=== PATIENT | female | born 1930 | race Caucasian/White ===

== ENCOUNTER → 2017-01-15 | Outpatient (CLI) | payer OTHER, MEDICARE ==
[~2017-01-15] MED LIST: ACET1TAB84 PO; ADVIN25/60 INH; ASCA500; ASCA500 PO; ASPI81TA28 PO; BIOT1TAB5 PO; CALC600T37 PO; CALCTAB5; CHOL1TAB46 PO; CRDCD240; DILT-115 PO; FLVHFA220; LANS30CA12; LOSA1TAB PO; LVQ750 PO; MULT-506; MULTTAB58 PO; POLY1SOL6 OP; PRD/1 PO; PRED10TA; PRED10TA PO; PRVC10 PO; SALM50AE2; SERT50TA; SNG10; SPRIN/30 INH; TIOTCAP; VNTHFA/IN INH; ZNT/150 PO; [UNRECOGNIZED DRUG - OTHER] TOP
[2017-01-15 12:28] LABS: MANUAL MICROSCOPIC REQUIRED? YES; URINE APPEARANCE CLEAR (CLEAR); URINE BILIRUBIN NEG (NEG); URINE COLOR COLORLESS; URINE NITRITE NEG (NEG); URINE SPECIFIC GRAVITY <= 1.005 (1.000-1.030); UROBILINOGEN NEG (NEG)
[2017-01-15 12:33] LABS: BASO % 0.4 %; BASO ABS # 0.03 K/uL (0-0.2); EOS % 2.1 %; HEMATOCRIT 37.7 % (37-47); IG% 0.5 %; LYMPH ABS # 1.61 K/uL (1.2-3.4); MEAN CELL VOLUME 101.1 fL (80-100); MEAN CORPUSCULAR HGB CONC 33.7 g/dl (32-36); MEAN PLATELET VOLUME 9.9 fL (7.4-10.4); MONO % 7.1 %; NEUT % 70.9 %; PLATELET COUNT 306 K/uL (130-400); RED BLOOD COUNT 3.73 M/uL (4.2-5.4); WHITE BLOOD COUNT 8.48 K/uL (4.8-10.8)
[2017-01-15 12:34] LABS: REVIEW REQ? NO
[2017-01-15 12:54] LABS: COMPLETE YES
[2017-01-15 13:05] LABS: CALCIUM 9.2 mg/dl (8.5-10.1); URINE WBC >30 /hpf (0-5)
[2017-01-15 13:06] LABS: URINE BACTERIA 2+ (NEG); URINE RBC 0-4 /hpf (0-4)
[2017-01-15 13:07] LABS: ESTIMATED AVERAGE GLUCOSE 111 mg/dl; HA1C FLAG Normal (Normal)
[2017-01-15 13:12] LABS: ALT/SGPT 14 U/L (12-78); BLOOD UREA NITROGEN 22 mg/dl (7-18); BUN/CREATININE RATIO 22.4 (10-20); CARBON DIOXIDE 25 mmol/L (21-32); CHLORIDE 107 mmol/L (98-107); GLUCOSE 108 mg/dl (70-99); POTASSIUM 4.1 mmol/L (3.5-5.1); SODIUM 141 mmol/L (136-145)
[2017-01-15 13:19] LABS: ALB/GLOB RATIO 1.1 (0.9-2); ALKALINE PHOSPHATASE 64 U/L (45-117); AST/SGOT 13 U/L (15-37)
[2017-01-15 14:00] LABS: ZZUR CULT IF INDIC CLEAN CATCH YES
== END | disposition home or self-care (01) ==
LOC: C.LABBFT 10:37
PROVIDERS: ATTEND Internal Medicine
DX: N18.3 Chronic kidney disease, stage 3 (moderate) (principal); E55.9 Vitamin D deficiency, unspecified; R73.01 Impaired fasting glucose

== ENCOUNTER → 2017-01-16 | Outpatient (CLI) | payer OTHER, MEDICARE | END | disposition home or self-care (01) | LOC: C.LAB1850 14:14 | PROVIDERS: ATTEND Internal Medicine Rheumatology | DX: M35.3 Polymyalgia rheumatica (principal) ==

== ENCOUNTER 2017-03-01 16:35 | Inpatient (IN) | payer OTHER, MEDICARE ==
[~2017-03-01] VITALS: Ht 152.4 cm; Wt 87.3 kg
[~2017-03-01 16:35] MED LIST changes: -ACET1TAB84 PO; -ADVIN25/60 INH; -ASCA500 PO; -ASPI81TA28 PO; -BIOT1TAB5 PO; -CALC600T37 PO; -CHOL1TAB46 PO; -DILT-115 PO; -LOSA1TAB PO; -LVQ750 PO; -MULTTAB58 PO; -POLY1SOL6 OP; -PRD/1 PO; -PRED10TA PO; -PRVC10 PO; -SPRIN/30 INH; -VNTHFA/IN INH; -ZNT/150 PO; -[UNRECOGNIZED DRUG - OTHER] TOP
[2017-03-01] MEDS ORDERED: ALBUT/IPRATROP 3MG/0.5MG NEB 3 ML VIAL INH STA (16:48)
[2017-03-01] MEDS ORDERED: METHYLPREDNISOLONE 125 MG VIAL IV STA (16:48)
[2017-03-01] MEDS ORDERED: ACET1TAB84 PO (16:53)
[2017-03-01] MEDS ORDERED: SPRIN/30 INH (16:53)
[2017-03-01] MEDS ORDERED: [UNRECOGNIZED DRUG - OTHER] TOP (16:53)
[2017-03-01] MEDS ORDERED: ASPI81TA28 PO (16:53)
[2017-03-01] MEDS ORDERED: LOSA1TAB PO (16:53)
[2017-03-01] MEDS ORDERED: PRD/1 PO (16:53)
[2017-03-01] MEDS ORDERED: ADVIN25/60 INH (16:53)
[2017-03-01] MEDS ORDERED: ZNT/150 PO (16:53)
[2017-03-01] MEDS ORDERED: MULTTAB58 PO (16:53)
[2017-03-01] MEDS ORDERED: PRVC10 PO (16:53)
[2017-03-01] MEDS ORDERED: ASCA500 PO (16:53)
[2017-03-01] MEDS ORDERED: POLY1SOL6 OP (16:53)
[2017-03-01] MEDS ORDERED: CALC600T37 PO (16:53)
[2017-03-01] MEDS ORDERED: BIOT1TAB5 PO (16:53)
[2017-03-01] MEDS ORDERED: CHOL1TAB46 PO (16:53)
[2017-03-01] MEDS ORDERED: DILT-115 PO (16:53)
--- NOTE | 2017-03-01 17:25 | DIAGNOSTIC IMAGING REPORT ---
CHEST ONE VIEW PORTABLE HISTORY: EVALUATE RESPIRATORY DISTRESS.DYSPNEA COMPARISON: Chest 12/25/2015. FINDINGS: The heart is stable in size. No pleural effusions. No pneumothorax. Mild diffuse interstitial thickening has slightly progressed. There are hazy bibasilar densities. IMPRESSION: Mild diffuse interstitial thickening with hazy bibasilar densities which has slightly progressed. This could represent developing pulmonary edema or an atypical pneumonia. Electronically signed by: Tejinder Diez M.D. 03/01/2017 5:23 PM Dictated Date/Time: 03/01/2017 5:22 PM
[2017-03-01] MEDS ORDERED: LEVAQUIN 750MG / 150ML D5W IV STA (17:37)
[2017-03-01 18:00] LABS: BASO % 0.6 %; BASO ABS # 0.04 K/uL (0-0.2); COMPLETE YES; EOS % 0.6 %; HEMATOCRIT 37.8 % (37-47); IG% 0.1 %; LYMPH % 23.2 %; MEAN CELL VOLUME 99.7 fL (80-100); MEAN CORPUSCULAR HGB CONC 33.1 g/dl (32-36); MEAN PLATELET VOLUME 9.6 fL (7.4-10.4); NEUT % 65.5 %; PLATELET COUNT 272 K/uL (130-400); RED BLOOD COUNT 3.79 M/uL (4.2-5.4)
[2017-03-01 18:16] LABS: ALT/SGPT 17 U/L (12-78); AST/SGOT 18 U/L (15-37); BLOOD UREA NITROGEN 27 mg/dl (7-18); BUN/CREATININE RATIO 24.6 (10-20); CALCIUM 8.4 mg/dl (8.5-10.1); CARBON DIOXIDE 28 mmol/L (21-32); CHLORIDE 104 mmol/L (98-107); GLUCOSE 120 mg/dl (70-99); POTASSIUM 3.6 mmol/L (3.5-5.1); SODIUM 141 mmol/L (136-145)
[2017-03-01 18:21] LABS: ALB/GLOB RATIO 0.9 (0.9-2); ALKALINE PHOSPHATASE 68 U/L (45-117); CKMB/CK RATIO 2.4 (0-3.0)
--- NOTE | 2017-03-01 19:06 | EMERGENCY ROOM VISIT NOTE ---
History Report prepared by Blake: Tiffany Howard Under the Supervision of: Dr. Jean Menchaca M.D. First contact with patient: 16:37 Stated Complaint: SOB, COUGH, ILLNESS History of Present Illness The patient is a 86 year old female who presents to the Emergency Room with complaints of constant shortness of breath beginning 1 week ago. The patient states that she has been sick with a cough for about a week. She reports that she has a history of COPD but is not on oxygen at home. She complains of a cough and runny nose. Per nursing staff, the patient was 77 percent on room air and after putting her on 2L of oxygen her saturation came up to 100 percent. The patient denies headache, fevers, chills, diaphoresis, visual changes, neck pain, chest pain, nausea, vomiting, abdominal pain, new back pain, melena, hematochezia, urinary symptoms, numbness, weakness, leg swelling, leg pain, lymphadenopathy, rash, or other complaints. Source of History: patient Onset: 1 week ago Position: other (global) Quality: other (SOB) Timing: constant Review of Systems See HPI for pertinent positives and negatives. A total of ten systems were reviewed and were otherwise negative. Past Medical & Surgical Medical Problems: (1) COPD (chronic obstructive pulmonary disease) (2) Hypertension (3) Osteoporosis Family History No pertinent family history stated. Social History Marital Status: Housing Status: assisted living Occupation Status: retired Current/Historical Medications Scheduled Ascorbic Acid (Vitamin C), 500 MG PO DAILY Aspirin (Aspirin Ec), 81 MG PO DAILY Biotin (Biotin), 1,000 MCG PO DAILY Calcium (Calcium), 600 MG PO DAILY Cholecalciferol (Vitamin D3), 5,000 UNITS PO DAILY Diltiazem Hcl Ext Rel (Tiazac), 240 MG PO DAILY Fluticasone Prop/Salmeterol (Advair Diskus 250/50 60 Dose), 1 PUFF INH BID Losartan Potassium (Cozaar), 25 MG PO DAILY Multiple Vitamin (Multivitamin), 1 TAB PO DAILY Polyethylene Glycol-Propylene (Systane Ultra), 1 DROPS OP DIRECTED Pravastatin Sod (Pravastatin Sodium), 10 MG PO QPM Prednisone (Prednisone), 2 MG PO DAILY Tiotropium [place] (Spiriva Handihaler), 1 CAP INH DAILY Scheduled PRN Acetaminophen (Tylenol Arthritis Ext Rel), 650 MG PO QID PRN for Pain Eyelid Cleansers (Sterilid), 1 INCH TOP DAILY PRN for UNDECIDED Ranitidine Hcl (Zantac), 150 MG PO UD PRN for HEARTBURN Allergies Coded Allergies: No Known Allergies (Unverified Allergy, Mild, 05/10/06) Physical Exam Vital Signs Date Time Temp Pulse Resp B/P (MAP) Pulse Ox O2 Delivery O2 Flow Rate FiO2 03/01/17 18:47 89 20 143/76 96 Nasal Cannula 2.0 03/01/17 17:32 95 Nasal Cannula 2.0 03/01/17 17:32 95 Nasal Cannula 2.0 03/01/17 17:20 36.8 93 24 172/86 77 Room Air 03/01/17 17:10 90 03/01/17 17:03 77 Room Air Physical Exam GENERAL: Awake, alert, well-appearing, in no distress HENT: Normocephalic, atraumatic. Oropharynx unremarkable. EYES: Normal conjunctiva. Sclera non-icteric. NECK: Supple. No nuchal rigidity. FROM. No JVD. RESPIRATORY: Expiratory wheezing. Dyspneic appearing. CARDIAC: Regular rate, normal rhythm. Extremities warm and well perfused. Pulses equal. ABDOMEN: Soft, non-distended. No tenderness to palpation. No rebound or guarding. No masses. RECTAL: Deferred. MUSCULOSKELETAL: Chest examination reveals no tenderness. The back is symmetrical on inspection without obvious abnormality. There is no CVA tenderness to palpation. No joint edema. LOWER EXTREMITIES: Calves are equal size bilaterally and non-tender. No edema. No discoloration. NEURO: Normal sensorium. No sensory or motor deficits noted. SKIN: No rash or jaundice noted. Medical Decision & Procedures ER Provider Diagnostic Interpretation: X-ray: Per my interpretation, radiologist review. CHEST ONE VIEW PORTABLE FINDINGS: The heart is stable in size. No pleural effusions. No pneumothorax. Mild diffuse interstitial thickening has slightly progressed. There are hazy bibasilar densities. IMPRESSION: Mild diffuse interstitial thickening with hazy bibasilar densities which has slightly progressed. This could represent developing pulmonary edema or an atypical pneumonia. Electronically signed by: Tejinder Diez M.D. 03/01/2017 5:23 PM Dictated Date/Time: 03/01/2017 5:22 PM Laboratory Results 03/01/17 17:46 Red Blood Count 3.79, Mean Corpuscular Volume 99.7, Mean Corpuscular Hemoglobin 33.0, Mean Corpuscular Hemoglobin Concent 33.1, Mean Platelet Volume 9.6, Neutrophils (%) (Auto) 65.5, Lymphocytes (%) (Auto) 23.2, Monocytes (%) (Auto) 10.0, Eosinophils (%) (Auto) 0.6, Basophils (%) (Auto) 0.6, Neutrophils # (Auto ) 4.52, Lymphocytes # (Auto) 1.60, Monocytes # (Auto) 0.69, Eosinophils # (Auto ) 0.04, Basophils # (Auto) 0.04 03/01/17 17:46 Test 03/01/17 17:46 03/01/17 17:54 White Blood Count 6.90 K/uL (4.8-10.8) Red Blood Count 3.79 M/uL (4.2-5.4) Hemoglobin 12.5 g/dL (12.0-16.0) Hematocrit 37.8 % (37-47) Mean Corpuscular Volume 99.7 fL (80-100) Mean Corpuscular Hemoglobin 33.0 pg (25-34) Mean Corpuscular Hemoglobin Concent 33.1 g/dl (32-36) Platelet Count 272 K/uL (130-400) Mean Platelet Volume 9.6 fL (7.4-10.4) Neutrophils (%) (Auto) 65.5 % Lymphocytes (%) (Auto) 23.2 % Monocytes (%) (Auto) 10.0 % Eosinophils (%) (Auto) 0.6 % Basophils (%) (Auto) 0.6 % Neutrophils # (Auto) 4.52 K/uL (1.4-6.5) Lymphocytes # (Auto) 1.60 K/uL (1.2-3.4) Monocytes # (Auto) 0.69 K/uL (0.11-0.59) Eosinophils # (Auto) 0.04 K/uL (0-0.5) Basophils # (Auto) 0.04 K/uL (0-0.2) RDW Standard Deviation 49.0 fL (36.4-46.3) RDW Coefficient of Variation 13.5 % (11.5-14.5) Immature Granulocyte % (Auto) 0.1 % Immature Granulocyte # (Auto) 0.01 K/uL (0.00-0.02) Prothrombin Time 11.0 SECONDS (9.0-12.0) Prothromb Time International Ratio 1.0 (0.9-1.1) Activated Partial Thromboplast Time 26.7 SECONDS (21.0-31.0) Partial Thromboplastin Ratio 1.0 Anion Gap 9.0 mmol/L (3-11) Est Creatinine Clear Calc Drug Dose 37.0 ml/min Estimated GFR () 53.0 Estimated GFR (Non- 45.7 BUN/Creatinine Ratio 24.6 (10-20) Calcium Level 8.4 mg/dl (8.5-10.1) Total Bilirubin 0.4 mg/dl (0.2-1) Aspartate Amino Transf (AST/SGOT) 18 U/L (15-37) Alanine Aminotransferase (ALT/SGPT) 17 U/L (12-78) Alkaline Phosphatase 68 U/L (45-117) Total Creatine Kinase 197 U/L (26-192) Creatine Kinase MB 4.7 ng/ml (0.5-3.6) Creatine Kinase MB Ratio 2.4 (0-3.0) Troponin I < 0.015 ng/ml (0-0.045) Pro-B-Type Natriuretic Peptide 221 pg/ml (0-1800) Total Protein 7.3 gm/dl (6.4-8.2) Albumin 3.5 gm/dl (3.4-5.0) Globulin 3.8 gm/dl (2.5-4.0) Albumin/Globulin Ratio 0.9 (0.9-2) Bedside Lactic Acid Venous 1.15 mmol/L (0.90-1.70) Laboratory results reviewed by me Medications Administered Medications (Trade) Dose Ordered Sig/Brittney Route Start Time Stop Time Status Last Admin Dose Admin Albuterol/ Ipratropium (Duoneb) 3 ml NOW STAT INH 03/01/17 16:48 03/01/17 16:50 DC 03/01/17 18:03 3 ML Methylprednisolone Sodium Succinate (Solu-Medrol IV) 125 mg NOW STAT IV 03/01/17 16:48 03/01/17 16:50 DC 03/01/17 18:04 125 MG Levofloxacin (Levaquin / D5W) 750 mg NOW STAT IV 03/01/17 17:37 03/01/17 17:39 DC 03/01/17 18:04 750 MG ECG Indication: SOB/dyspnea Rate (beats per minute): 82 Rhythm: normal sinus Findings: Q waves (Inferior), no acute ischemic change ED Course 163: The patient was evaluated in room B4. A complete history and physical exam was performed. 1648: Solu-Medrol 125mg IV, Duoneb 3ml INH. 1737: Levofloxacin 720mg IV. 1743: I reevaluated the patient and she is doing well. 184: Discussed the patient's case with Dr. Pineda [facility]. The patient will be evaluated for further treatment and disposition. 185: Upon reexamination, the patient was doing well. I discussed the test results and treatment plan with the patient. The patient will be evaluated for further management. Medical Decision Triage Nursing notes reviewed. The patient's presentation and history were concerning for SOB. Medication Reconciliation: I attest that I have personally reviewed the patient' s current medication list Blood pressure screening: Patient was found to have an elevated blood pressure and was referred to their primary doctor for recheck and further treatment. Etiologies such as pneumonia, COPD, reactive airway disease, CHF, cardiac ischemia, pulmonary embolism, pneumothorax, musculoskeletal, infections, gastrointestinal, as well as others were entertained. The patient was hypoxic. She was responding well to oxygen. She was given solumedrol and a duoneb. On reassessment the patient was stable and doing well on supplemental oxygen. Her CBC was unremarkable. The patient had a negative BNP and troponin. Her MB was slightly positive as well as her total CK. The patient's coags and LFTs were unremarkable. The patient had an infiltrate on chest x-ray. She was given IV Levaquin. She will need further evaluation and management in the hospital. I did discuss the case with the hospitalist service. The patient was evaluated in the Emergency Room and admitted for further treatment. Consults Time Called: [id number] Consulting Physician: Dr. Barber - [facility] Returned Call: [phone] Discussed the patient's case with Dr. Barber of [facility]. The patient will be evaluated for further treatment and disposition. Impression Primary Impression: Pneumonia Additional Impressions: Hypoxia COPD (chronic obstructive pulmonary disease) Scribe Attestation The scribe's documentation has been prepared under my direction and personally reviewed by me in its entirety. I confirm that the note above accurately reflects all work, treatment, procedures, and medical decision making performed by me. Departure Information Dispostion Being Evaluated By Hospitalist Referrals Fausto Fajardo M.D. (PCP) Problem Qualifiers
[2017-03-01] MEDS ORDERED: RANITIDINE HCL 150 MG TAB PO PRN (19:15)
[2017-03-01] MEDS ORDERED: MAGNESIUM HYDROXIDE SUSP 30 ML UDC PO PRN (19:15)
[2017-03-01] MEDS ORDERED: ONDANSETRON INJ 2 MG/ML 2 ML VIAL IV PRN (19:15)
--- NOTE | 2017-03-01 19:17 | History and Physical ---
History & Physical Date & Time of Service: Mar 01, 2017 at 19:08 Chief Complaint: Sob, Cough, Illness Primary Care Physician: Fausto Fajardo M.D. History of Present Illness Source: patient Pt is a 86 yo female with hx of COPD, HTN, dyslipidemia, OA who presents to the ER with complaints of progressive shortness of breath x 2 days. Pt reports upper respiratory symptoms of runny nose, productive cough , and weakness x 1 week but stats past 2 days her shortness of breath worse with exertion. Pt has hx of COPD and is on advair and albuterol at home. Pt is not O2 dependant. Pt denies any fevers, chills, chest pain, palpitation, abd pain. Upon arrival to ER, pt noted to be hypoxic in the 70s and short of breath. Improved with nasal cannula at 2L O2. CXR determined possible developing basilar infiltrate as well. Past Medical/Surgical History Medical Problems: (1) COPD (chronic obstructive pulmonary disease) Status: Chronic (2) Hypertension Status: Chronic (3) Osteoporosis Status: Chronic Social History Smoking Status: Former Smoker Marital Status: Occupational Status: retired Multi-Drug Resistant Organisms History of MDRO: No Allergies Coded Allergies: No Known Allergies (Unverified Allergy, Mild, 05/10/06) Home Medications Scheduled Ascorbic Acid (Vitamin C), 500 MG PO DAILY Aspirin (Aspirin Ec), 81 MG PO DAILY Biotin (Biotin), 1,000 MCG PO DAILY Calcium (Calcium), 600 MG PO DAILY Cholecalciferol (Vitamin D3), 5,000 UNITS PO DAILY Diltiazem Hcl Ext Rel (Tiazac), 240 MG PO DAILY Fluticasone Prop/Salmeterol (Advair Diskus 250/50 60 Dose), 1 PUFF INH BID Losartan Potassium (Cozaar), 25 MG PO DAILY Multiple Vitamin (Multivitamin), 1 TAB PO DAILY Polyethylene Glycol-Propylene (Systane Ultra), 1 DROPS OP DIRECTED Pravastatin Sod (Pravastatin Sodium), 10 MG PO QPM Prednisone (Prednisone), 2 MG PO DAILY Tiotropium [place] (Spiriva Handihaler), 1 CAP INH DAILY Scheduled PRN Acetaminophen (Tylenol Arthritis Ext Rel), 650 MG PO QID PRN for Pain Eyelid Cleansers (Sterilid), 1 INCH TOP DAILY PRN for UNDECIDED Ranitidine Hcl (Zantac), 150 MG PO UD PRN for HEARTBURN Review of Systems Constitutional: No fever, No chills, No sweats, No weakness, No fatigue ENT: + nasal symptoms (runny nose), No hearing loss, No unusual epistaxis Respiratory: + cough, + sputum, + wheezing, + shortness of breath, + dyspnea on exertion, No dyspnea at rest Cardiovascular: No chest pain, No orthopnea, No PND, No edema, No claudication Abdomen: No pain, No nausea, No vomiting, No diarrhea, No constipation Musculoskeletal: + joint pain, No muscle pain Genitourinary - Female: No dysuria, No urinary frequency, No urinary urgency, No urinary incontinence Neurologic: No memory loss, No paralysis, No weakness Psychiatric: No depression symptoms, No anhedonism, No anxiety Physical Exam Vital Signs Date Time Temp Pulse Resp B/P (MAP) Pulse Ox O2 Delivery O2 Flow Rate FiO2 03/01/17 18:47 89 20 143/76 96 Nasal Cannula 2.0 03/01/17 17:32 95 Nasal Cannula 2.0 03/01/17 17:32 95 Nasal Cannula 2.0 03/01/17 17:20 36.8 93 24 172/86 77 Room Air 03/01/17 17:10 90 03/01/17 17:03 77 Room Air General Appearance: WD/WN, no apparent distress, + obese Eyes: normal inspection, PERRL, EOMI, sclerae normal Neck: supple, no adenopathy, thyroid normal, no JVD Respiratory/Chest: chest non-tender, no respiratory distress, + decreased breath sounds, + wheezing Cardiovascular: regular rate, rhythm, no edema, no gallop, no JVD Abdomen/GI: normal bowel sounds, non tender, soft, no organomegaly Extremities/Musculoskelatal: normal inspection, no calf tenderness, normal capillary refill, no pedal edema 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, no motor/sensory deficits, alert, oriented x 3 Diagnostics Laboratory Results Results Past 24 Hours Test 03/01/17 17:46 03/01/17 17:54 Range/Units White Blood Count 6.90 4.8-10.8 K/uL Red Blood Count 3.79 4.2-5.4 M/uL Hemoglobin 12.5 12.0-16.0 g/dL Hematocrit 37.8 37-47 % Mean Corpuscular Volume 99.7 80-100 fL Mean Corpuscular Hemoglobin 33.0 25-34 pg Mean Corpuscular Hemoglobin Concent 33.1 32-36 g/dl Platelet Count 272 130-400 K/uL Mean Platelet Volume 9.6 7.4-10.4 fL Neutrophils (%) (Auto) 65.5 % Lymphocytes (%) (Auto) 23.2 % Monocytes (%) (Auto) 10.0 % Eosinophils (%) (Auto) 0.6 % Basophils (%) (Auto) 0.6 % Neutrophils # (Auto) 4.52 1.4-6.5 K/uL Lymphocytes # (Auto) 1.60 1.2-3.4 K/uL Monocytes # (Auto) 0.69 0.11-0.59 K/uL Eosinophils # (Auto) 0.04 0-0.5 K/uL Basophils # (Auto) 0.04 0-0.2 K/uL RDW Standard Deviation 49.0 36.4-46.3 fL RDW Coefficient of Variation 13.5 11.5-14.5 % Immature Granulocyte % (Auto) 0.1 % Immature Granulocyte # (Auto) 0.01 0.00-0.02 K/uL Prothrombin Time 11.0 9.0-12.0 SECONDS Prothromb Time International Ratio 1.0 0.9-1.1 Activated Partial Thromboplast Time 26.7 21.0-31.0 SECONDS Partial Thromboplastin Ratio 1.0 Sodium Level 141 136-145 mmol/L Potassium Level 3.6 3.5-5.1 mmol/L Chloride Level 104 98-107 mmol/L Carbon Dioxide Level 28 21-32 mmol/L Anion Gap 9.0 3-11 mmol/L Blood Urea Nitrogen 27 7-18 mg/dl Creatinine 1.10 0.60-1.20 mg/dl Est Creatinine Clear Calc Drug Dose 37.0 ml/min Estimated GFR () 53.0 Estimated GFR (Non- 45.7 BUN/Creatinine Ratio 24.6 10-20 Random Glucose 120 70-99 mg/dl Calcium Level 8.4 8.5-10.1 mg/dl Total Bilirubin 0.4 0.2-1 mg/dl Aspartate Amino Transf (AST/SGOT) 18 15-37 U/L Alanine Aminotransferase (ALT/SGPT) 17 12-78 U/L Alkaline Phosphatase 68 45-117 U/L Total Creatine Kinase 197 26-192 U/L Creatine Kinase MB 4.7 0.5-3.6 ng/ml Creatine Kinase MB Ratio 2.4 0-3.0 Troponin I < 0.015 0-0.045 ng/ml Pro-B-Type Natriuretic Peptide 221 0-1800 pg/ml Total Protein 7.3 6.4-8.2 gm/dl Albumin 3.5 3.4-5.0 gm/dl Globulin 3.8 2.5-4.0 gm/dl Albumin/Globulin Ratio 0.9 0.9-2 Bedside Lactic Acid Venous 1.15 0.90-1.70 mmol/L Microbiology Results 03/01/17 Blood Culture, Received Pending 03/01/17 Blood Culture, Received Pending Impression Assessment and Plan Pt is a 86 yo female with progressive worsening sob x 2 days Shortness of breath likely secondary to COPD exacerbation/developing CAP. Will cont pt on advair and O2 per protocol. Will also utilize solumedrol 60 mg IV BID and duonebs q 4 hrs and q 2 PRN. Will start on levaquin 750 mg IV q daily as well. Obtain sputum cx if possible and give mucinex to thin out secretions HTN, stable, cont cardizem and losartan Dyslipidemia cont statin OA, DC oral prednisone since pt will be on solumedrol GERD stable, cont zantac DVT ppx with heparin Pt is DNR VTE Prophylaxis VTE Risk Assessment Done? Y/N: Yes Risk Level: Moderate
[2017-03-01 20:26] LABS: URINE APPEARANCE CLOUDY (CLEAR); URINE BILIRUBIN NEG (NEG); URINE COLOR YELLOW; URINE EPITHELIAL CELL AUTO >30 /lpf (0-5); URINE NITRITE POS (NEG); UROBILINOGEN NEG (NEG)
[2017-03-01 20:31] LABS: MANUAL MICROSCOPIC REQUIRED? NO; REVIEW REQ? NO
[2017-03-01 20:45] VITALS: BP 168/78; TEMP 36.7; O2SAT 96; Ht 152.4 cm; Wt 87.3 kg
[2017-03-01 20:52] VITALS: BP 168/78; PULSE 93; TEMP 36.7; O2SAT 92
[2017-03-01] MEDS: HEPARIN SOD 5000 UNIT/0.5 ML CARP SQ SCH (22:00)
[2017-03-01] MEDS: FLUTICASONE/SALMETEROL 250/50 (ADVAIR) 14 PUFF/1 INHALER INH SCH (22:00)
[2017-03-01] MEDS: PRAVASTATIN SOD 10 MG TAB PO SCH (22:01)
[2017-03-01] MEDS: GUAIFENESIN 600 MG TABCR PO SCH (22:01)
[2017-03-01 22:18] VITALS: PULSE 90; O2SAT 94
[2017-03-01] MEDS: ALBUT/IPRATROP 3MG/0.5MG NEB 3 ML VIAL INH SCH (22:18)
[2017-03-01] MEDS ORDERED: LEVOFLOXACIN CONSULT ACTIVE PRN (23:45)
[2017-03-02] VITALS (11 sets, daily range): BP systolic 153–172; BP diastolic 75–83; PULSE 88–107; TEMP 36.5–37.1; O2SAT 85–95
[2017-03-02] MEDS: HEPARIN SOD 5000 UNIT/0.5 ML CARP SQ SCH ×3 (05:45→20:46)
[2017-03-02] MEDS ORDERED: METHYLPREDNISOLONE IV 60 MG in SYRINGE 0 ML IV SCH (06:00)
[2017-03-02 06:28] LABS: BASO % 0.3 %; BASO ABS # 0.01 K/uL (0-0.2); COMPLETE YES; HEMATOCRIT 38.9 % (37-47); IG% 0.3 %; LYMPH % 20.3 %; LYMPH ABS # 0.76 K/uL (1.2-3.4); MEAN CELL VOLUME 97.7 fL (80-100); MEAN CORPUSCULAR HEMOGLOBIN 32.2 pg (25-34); MEAN CORPUSCULAR HGB CONC 32.9 g/dl (32-36); MEAN PLATELET VOLUME 9.5 fL (7.4-10.4); MONO % 1.9 %; NEUT % 77.2 %; PLATELET COUNT 283 K/uL (130-400); RED BLOOD COUNT 3.98 M/uL (4.2-5.4); WHITE BLOOD COUNT 3.74 K/uL (4.8-10.8)
[2017-03-02 07:06] LABS: BLOOD UREA NITROGEN 21 mg/dl (7-18); BUN/CREATININE RATIO 24.1 (10-20); CALCIUM 8.9 mg/dl (8.5-10.1); CARBON DIOXIDE 26 mmol/L (21-32); CHLORIDE 104 mmol/L (98-107); CREATININE 0.87 mg/dl (0.60-1.20); GLUCOSE 150 mg/dl (70-99); POTASSIUM 3.9 mmol/L (3.5-5.1); SODIUM 141 mmol/L (136-145)
[2017-03-02] MEDS: ALBUT/IPRATROP 3MG/0.5MG NEB 3 ML VIAL INH SCH ×4 (07:14→19:26)
[2017-03-02] MEDS: FLUTICASONE/SALMETEROL 250/50 (ADVAIR) 14 PUFF/1 INHALER INH SCH ×2 (08:39→20:43)
[2017-03-02] MEDS: TIOTROPIUM BROMIDE 5 PUFF/90 MCG INH INH SCH (08:40)
[2017-03-02] MEDS: LOSARTAN POTASSIUM 25 MG TAB PO SCH (08:41)
[2017-03-02] MEDS: ASPIRIN 81 MG ECTAB PO SCH (08:41)
[2017-03-02] MEDS: ASCORBIC ACID 500 MG TAB PO SCH (08:42)
[2017-03-02] MEDS: MULTIVITAMIN TAB PO SCH (08:42)
[2017-03-02] MEDS: GUAIFENESIN 600 MG TABCR PO SCH ×2 (08:42→20:43)
[2017-03-02] MEDS: DILTIAZEM HCL 120 MG EXT REL CAP PO SCH (08:43)
--- NOTE | 2017-03-02 10:33 | Medical Student: [facility] ---
Med Student History & Physical Date & Time of Service: Mar 02, 2017 at 08:32 Chief Complaint: COPD Primary Care Physician: Fausto Fajardo M.D. History of Present Illness Source: patient The patient is an 86 year old woman with a medical history significant for HTN, COPD, dental abscess (02/11) and recent URI (02/23) who presents to [facility] with complaints of shortness of breath. The patient reports that she has been doing well recently until around when she "got a bug" that she did not seek treatment for. She claims several people that she knows had the same symptoms and was told it was a viral infection and no treatment was provided so she "just rode it out." Associated symptoms with this "bug" was a cough and rhinorrhea with clear discharge. She was starting to feel better this past week when she developed dyspnea on exertion. The onset was gradual over several days. She denies fever, sweats, chest pain, palpatations, or other associated symptoms. Her symptoms escalated yesterday to the point that she decided to call for EMS to transfer her to the Emergency Department. In the ED, she was hypoxic on room air to 77% and hypertensive to 172/86. Her pulse oximetry returned to 100% on 2l of oxygen. She was given a duoneb and solumedrol at this time. She was also noted to have a slightly elevated CK-MB and total CK. CXR in the ED was concerning for bibasilar infiltrate/edema. It was decided to bring the patient into the hospital for further workup. This morning the patient is resting comfortably in bed, although she does appear somewhat dyspneic. Respiratory therapy had been by to see her 45 minutes prior to my arrival and removed her supplemental oxygen. She was again hypoxic to 85% and was placed back on 1L of oxygen nasal canula. Her pulse oximetry sherrie to 91% by the time I left. She reports no new symptoms and claims that she may be feeling a little better. She did state that she has not slept since 03/01 at 0700. She thinks this is due to some anxiety and inability to get comfortable in the hospital bed. Past Medical/Surgical History The patient has a PMH significant for HTN, COPD, seasonal allergies, dyslipidemia, osteoarthritis, and s/p excision of basal cell carcinoma on the chin. She reports having a D/C procedure, tonsils and appendix removed as a chid , and has 2 children who were born uneventfully via spontaneous vaginal delivery. Family History Father: coronary artery disease, HTN, heart disease Mother: HTN, cancer (Colon Ca), stroke Sibling(s): cancer (Renal Cancer in brother), thromboembolic disease, pertinent history of (Pulmonary Fibrosis, Pulmonary embolism) Social History The patient is and lives alone at [facility]. She is a former smoker with a 25-pack year history. She quit smoking 25 years ago. She reports asbestos exposure from prior work at "[employer]". She also worked at [employer] for some time prior to retiring. She drinks only on social occasions. Daughter, son, and [id number] all live nearby and visit often and bring her meals. She still cooks for herself and drives. The patient reports occasionally using a walker around her apartment. Smoking Status: Former Smoker (25 pack year history) Smokeless Tobacco Use: No Alcohol Use: socially Drug Use: none Marital Status: Housing status: lives alone Occupational Status: retired Allergies Coded Allergies: No Known Allergies (Unverified , 05/10/06) Medications Acetaminophen (Tylenol Arthritis Ext Rel), 650 MG PO QID PRN for Pain Ascorbic Acid (Vitamin C), 500 MG PO DAILY Aspirin (Aspirin Ec), 81 MG PO DAILY Biotin (Biotin), 1,000 MCG PO DAILY Calcium (Calcium), 600 MG PO DAILY Cholecalciferol (Vitamin D3), 5,000 UNITS PO DAILY Diltiazem Hcl Ext Rel (Tiazac), 240 MG PO DAILY Eyelid Cleansers (Sterilid), 1 INCH TOP DAILY PRN for UNDECIDED Fluticasone Prop/Salmeterol (Advair Diskus 250/50 60 Dose), 1 PUFF INH BID Losartan Potassium (Cozaar), 25 MG PO DAILY Multiple Vitamin (Multivitamin), 1 TAB PO DAILY Polyethylene Glycol-Propylene (Systane Ultra), 1 DROPS OP DIRECTED Pravastatin Sod (Pravastatin Sodium), 10 MG PO QPM Prednisone (Prednisone), 2 MG PO DAILY Ranitidine Hcl (Zantac), 150 MG PO UD PRN for HEARTBURN Tiotropium [place] (Spiriva Handihaler), 1 CAP INH DAILY Review of Systems Constitutional: + weakness, + fatigue, No fever, No chills, No sweats, No weight loss Eyes: No eye pain, No redness, No discharge ENT: + nasal symptoms, + sore throat, + dental problems, No hearing loss Respiratory: + wheezing, + shortness of breath, + dyspnea on exertion, No cough Cardiovascular: No chest pain, No edema, No palpitations Abdomen: No pain, No nausea, No vomiting, No diarrhea, No constipation, No GI bleeding Musculoskeletal: + joint pain, No muscle pain, No swelling Genitourinary - Female: No dysuria, No urinary frequency, No urinary urgency, No urinary incontinence, No urinary retention Neurologic: + weakness, No memory loss, No paralysis, No numbness/tingling, No vertigo, No balance problems Psychiatric: No depression symptoms Endocrine: + fatigue Hematologic / Lymphatic: No abnormal bleeding/bruising Allergic / Immunologic: + seasonal allergies Physical Exam Vital Signs (24 Hours) Date Time Temp Pulse Resp B/P (MAP) Pulse Ox O2 Delivery O2 Flow Rate FiO2 03/02/17 07:46 36.9 97 16 155/77 (103) 94 Room Air 03/02/17 07:14 96 18 95 Nasal Cannula 1.0 03/02/17 04:00 Nasal Cannula 2.0 03/02/17 04:00 37.1 88 16 172/80 (110) 94 Nasal Cannula 1.0 03/02/17 02:24 Nasal Cannula 2.0 03/01/17 22:18 90 18 94 Nasal Cannula 2.0 03/01/17 20:52 36.7 93 18 168/78 (108) 92 Nasal Cannula 2.0 03/01/17 20:45 36.7 18 168/78 96 Nasal Cannula 2.0 03/01/17 19:54 98 18 143/76 93 Nasal Cannula 2.0 03/01/17 18:47 89 20 143/76 96 Nasal Cannula 2.0 03/01/17 17:32 95 Nasal Cannula 2.0 03/01/17 17:32 95 Nasal Cannula 2.0 03/01/17 17:20 36.8 93 24 172/86 77 Room Air 03/01/17 17:10 90 03/01/17 17:03 77 Room Air General Appearance: + mild distress Head: normocephalic, atraumatic Eyes: normal inspection, PERRL, EOMI ENT: normal ENT inspection, hearing grossly normal, pharynx normal Respiratory/Chest: chest non-tender, + respiratory distress, + decreased breath sounds, + crackles, + wheezing Cardiovascular: regular rate, rhythm, no edema, no JVD, no murmur Abdomen/GI: normal bowel sounds, non tender, soft, no organomegaly Neurologic/Psych: hydro pneumatic tester II-XII nml as tested, normal mood/affect, normal reflexes Skin: normal color Lymphatic: no adenopathy Diagnostics Laboratory Results Results Past 24 Hours Test 03/01/17 17:46 03/01/17 17:54 03/01/17 19:35 03/01/17 22:07 Range/Units White Blood Count 6.90 4.8-10.8 K/uL Red Blood Count 3.79 4.2-5.4 M/uL Hemoglobin 12.5 12.0-16.0 g/dL Hematocrit 37.8 37-47 % Mean Corpuscular Volume 99.7 80-100 fL Mean Corpuscular Hemoglobin 33.0 25-34 pg Mean Corpuscular Hemoglobin Concent 33.1 32-36 g/dl Platelet Count 272 130-400 K/uL Mean Platelet Volume 9.6 7.4-10.4 fL Neutrophils (%) (Auto) 65.5 % Lymphocytes (%) (Auto) 23.2 % Monocytes (%) (Auto) 10.0 % Eosinophils (%) (Auto) 0.6 % Basophils (%) (Auto) 0.6 % Neutrophils # (Auto) 4.52 1.4-6.5 K/uL Lymphocytes # (Auto) 1.60 1.2-3.4 K/uL Monocytes # (Auto) 0.69 0.11-0.59 K/uL Eosinophils # (Auto) 0.04 0-0.5 K/uL Basophils # (Auto) 0.04 0-0.2 K/uL RDW Standard Deviation 49.0 36.4-46.3 fL RDW Coefficient of Variation 13.5 11.5-14.5 % Immature Granulocyte % (Auto) 0.1 % Immature Granulocyte # (Auto) 0.01 0.00-0.02 K/uL Prothrombin Time 11.0 9.0-12.0 SECONDS Prothromb Time International Ratio 1.0 0.9-1.1 Activated Partial Thromboplast Time 26.7 21.0-31.0 SECONDS Partial Thromboplastin Ratio 1.0 Sodium Level 141 136-145 mmol/L Potassium Level 3.6 3.5-5.1 mmol/L Chloride Level 104 98-107 mmol/L Carbon Dioxide Level 28 21-32 mmol/L Anion Gap 9.0 3-11 mmol/L Blood Urea Nitrogen 27 7-18 mg/dl Creatinine 1.10 0.60-1.20 mg/dl Est Creatinine Clear Calc Drug Dose 37.0 ml/min Estimated GFR () 53.0 Estimated GFR (Non- 45.7 BUN/Creatinine Ratio 24.6 10-20 Random Glucose 120 70-99 mg/dl Calcium Level 8.4 8.5-10.1 mg/dl Total Bilirubin 0.4 0.2-1 mg/dl Aspartate Amino Transf (AST/SGOT) 18 15-37 U/L Alanine Aminotransferase (ALT/SGPT) 17 12-78 U/L Alkaline Phosphatase 68 45-117 U/L Total Creatine Kinase 197 26-192 U/L Creatine Kinase MB 4.7 0.5-3.6 ng/ml Creatine Kinase MB Ratio 2.4 0-3.0 Troponin I < 0.015 < 0.015 0-0.045 ng/ml Pro-B-Type Natriuretic Peptide 221 0-1800 pg/ml Total Protein 7.3 6.4-8.2 gm/dl Albumin 3.5 3.4-5.0 gm/dl Globulin 3.8 2.5-4.0 gm/dl Albumin/Globulin Ratio 0.9 0.9-2 Bedside Lactic Acid Venous 1.15 0.90-1.70 mmol/L Urine Color YELLOW Urine Appearance CLOUDY CLEAR Urine pH 5.0 4.5-7.5 Urine Specific [place] 1.020 1.000-1.030 Urine Protein NEG NEG Urine Glucose (UA) NEG NEG Urine Ketones TRACE NEG Urine Occult Blood NEG NEG Urine Nitrite POS NEG Urine Bilirubin NEG NEG Urine Urobilinogen NEG NEG Urine Leukocyte Esterase MODERATE NEG Urine WBC (Auto) >30 0-5 /hpf Urine RBC (Auto) 0-4 0-4 /hpf Urine Hyaline Casts (Auto) 1-5 0-5 /lpf Urine Epithelial Cells (Auto) >30 0-5 /lpf Urine Bacteria (Auto) 4+ NEG Test 6/5/17 06:08 Range/Units White Blood Count 3.74 4.8-10.8 K/uL Red Blood Count 3.98 4.2-5.4 M/uL Hemoglobin 12.8 12.0-16.0 g/dL Hematocrit 38.9 37-47 % Mean Corpuscular Volume 97.7 80-100 fL Mean Corpuscular Hemoglobin 32.2 25-34 pg Mean Corpuscular Hemoglobin Concent 32.9 32-36 g/dl Platelet Count 283 130-400 K/uL Mean Platelet Volume 9.5 7.4-10.4 fL Neutrophils (%) (Auto) 77.2 % Lymphocytes (%) (Auto) 20.3 % Monocytes (%) (Auto) 1.9 % Eosinophils (%) (Auto) 0.0 % Basophils (%) (Auto) 0.3 % Neutrophils # (Auto) 2.89 1.4-6.5 K/uL Lymphocytes # (Auto) 0.76 1.2-3.4 K/uL Monocytes # (Auto) 0.07 0.11-0.59 K/uL Eosinophils # (Auto) 0.00 0-0.5 K/uL Basophils # (Auto) 0.01 0-0.2 K/uL RDW Standard Deviation 47.9 36.4-46.3 fL RDW Coefficient of Variation 13.3 11.5-14.5 % Immature Granulocyte % (Auto) 0.3 % Immature Granulocyte # (Auto) 0.01 0.00-0.02 K/uL Sodium Level 141 136-145 mmol/L Potassium Level 3.9 3.5-5.1 mmol/L Chloride Level 104 98-107 mmol/L Carbon Dioxide Level 26 21-32 mmol/L Anion Gap 11.0 3-11 mmol/L Blood Urea Nitrogen 21 7-18 mg/dl Creatinine 0.87 0.60-1.20 mg/dl Est Creatinine Clear Calc Drug Dose 46.3 ml/min Estimated GFR () 70.4 Estimated GFR (Non- 60.7 BUN/Creatinine Ratio 24.1 10-20 Random Glucose 150 70-99 mg/dl Calcium Level 8.9 8.5-10.1 mg/dl Troponin I < 0.015 0-0.045 ng/ml Microbiology Results 03/01/17 Blood Culture, Received Pending 03/01/17 Blood Culture, Received Pending Impression Assessment and Plan Assessment In summary, the patient is an 86 year old female who presents with dyspnea on exertion. This is likely due to a COPD exacerbation/developing PNA. Other etiologies such as CHF, pulmonary embolism, endocarditis, pulmonary fibrosis, and CAD were considered. Her lack of fever and normal white count make pneumonia less likely, however does not eliminate the potential for a developing atypical pneumonia. Plan PNA- Continue levofloxacin and solumedrol. Continue prn order for duonebs q4h COPD- Continue Advair and Spiriva as prescribed outpatient. HTN- is stable at the moment. Continue diltiazem and losartan as prescribed outpatient. Dyslipidemia- Continue pravastatin GERD- Not causing issues currently. Treat with ranitidine prn DVT prophylaxis with heparin Patient is a DNR Advanced Directives Existing Living Will: No Existing Power of Registered Respiratory Therapist: No
--- NOTE | 2017-03-02 17:24 | Progress Note ---
Subjective Date of Service: Mar 02, 2017. Subjective pt has significant air trapping on exam, remains short of breath some tremulousness after meds, non productive cough, urinary incontinence with cough family at bedside and updated Problem List Medical Problems: (1) COPD (chronic obstructive pulmonary disease) Status: Chronic (2) Hypoxia Status: Acute (3) Pneumonia Status: Acute Review of Systems Constitutional: + weakness, + fatigue, No fever, No chills Respiratory: + cough, + shortness of breath, + dyspnea on exertion, No sputum Cardiac: No chest pain, No orthopnea, No PND Abdomen: No pain, No nausea, No vomiting Musculoskeletal: No joint pain, No muscle pain Female : + incontinence, No dysuria, No urinary frequency Neurologic: No memory loss, No paralysis Objective Vital Signs Date Time Temp Pulse Resp B/P (MAP) Pulse Ox O2 Delivery O2 Flow Rate FiO2 03/02/17 07:46 36.9 97 16 155/77 (103) 94 Room Air 03/02/17 07:14 96 18 95 Nasal Cannula 1.0 03/02/17 04:00 Nasal Cannula 2.0 03/02/17 04:00 37.1 88 16 172/80 (110) 94 Nasal Cannula 1.0 03/02/17 02:24 Nasal Cannula 2.0 03/01/17 22:18 90 18 94 Nasal Cannula 2.0 03/01/17 20:52 36.7 93 18 168/78 (108) 92 Nasal Cannula 2.0 03/01/17 20:45 36.7 18 168/78 96 Nasal Cannula 2.0 03/01/17 19:54 98 18 143/76 93 Nasal Cannula 2.0 03/01/17 18:47 89 20 143/76 96 Nasal Cannula 2.0 03/01/17 17:32 95 Nasal Cannula 2.0 03/01/17 17:32 95 Nasal Cannula 2.0 03/01/17 17:20 36.8 93 24 172/86 77 Room Air 03/01/17 17:10 90 03/01/17 17:03 77 Room Air Physical Exam General Appearance: WD/WN, + mild distress Eyes: PERRL, EOMI Neck: supple, no JVD Respiratory/Chest: chest non-tender, + respiratory distress, + decreased breath sounds, + accessory muscle use Cardiovascular: regular rate, rhythm, + systolic murmur Abdomen: normal bowel sounds, non tender, soft Extremities: no pedal edema, no calf tenderness Neurologic/Psychiatric: alert, oriented x 3 Laboratory Results Last 24 Hours Test 03/01/17 17:46 03/01/17 17:54 03/01/17 19:35 03/01/17 22:07 White Blood Count 6.90 K/uL Red Blood Count 3.79 M/uL Hemoglobin 12.5 g/dL Hematocrit 37.8 % Mean Corpuscular Volume 99.7 fL Mean Corpuscular Hemoglobin 33.0 pg Mean Corpuscular Hemoglobin Concent 33.1 g/dl Platelet Count 272 K/uL Mean Platelet Volume 9.6 fL Neutrophils (%) (Auto) 65.5 % Lymphocytes (%) (Auto) 23.2 % Monocytes (%) (Auto) 10.0 % Eosinophils (%) (Auto) 0.6 % Basophils (%) (Auto) 0.6 % Neutrophils # (Auto) 4.52 K/uL Lymphocytes # (Auto) 1.60 K/uL Monocytes # (Auto) 0.69 K/uL Eosinophils # (Auto) 0.04 K/uL Basophils # (Auto) 0.04 K/uL RDW Standard Deviation 49.0 fL RDW Coefficient of Variation 13.5 % Immature Granulocyte % (Auto) 0.1 % Immature Granulocyte # (Auto) 0.01 K/uL Prothrombin Time 11.0 SECONDS Prothromb Time International Ratio 1.0 Activated Partial Thromboplast Time 26.7 SECONDS Partial Thromboplastin Ratio 1.0 Sodium Level 141 mmol/L Potassium Level 3.6 mmol/L Chloride Level 104 mmol/L Carbon Dioxide Level 28 mmol/L Anion Gap 9.0 mmol/L Blood Urea Nitrogen 27 mg/dl Creatinine 1.10 mg/dl Est Creatinine Clear Calc Drug Dose 37.0 ml/min Estimated GFR () 53.0 Estimated GFR (Non- 45.7 BUN/Creatinine Ratio 24.6 Random Glucose 120 mg/dl Calcium Level 8.4 mg/dl Total Bilirubin 0.4 mg/dl Aspartate Amino Transf (AST/SGOT) 18 U/L Alanine Aminotransferase (ALT/SGPT) 17 U/L Alkaline Phosphatase 68 U/L Total Creatine Kinase 197 U/L Creatine Kinase MB 4.7 ng/ml Creatine Kinase MB Ratio 2.4 Troponin I < 0.015 ng/ml < 0.015 ng/ml Pro-B-Type Natriuretic Peptide 221 pg/ml Total Protein 7.3 gm/dl Albumin 3.5 gm/dl Globulin 3.8 gm/dl Albumin/Globulin Ratio 0.9 Bedside Lactic Acid Venous 1.15 mmol/L Urine Color YELLOW Urine Appearance CLOUDY Urine pH 5.0 Urine Specific [place] 1.020 Urine Protein NEG Urine Glucose (UA) NEG Urine Ketones TRACE Urine Occult Blood NEG Urine Nitrite POS Urine Bilirubin NEG Urine Urobilinogen NEG Urine Leukocyte Esterase MODERATE Urine WBC (Auto) >30 /hpf Urine RBC (Auto) 0-4 /hpf Urine Hyaline Casts (Auto) 1-5 /lpf Urine Epithelial Cells (Auto) >30 /lpf Urine Bacteria (Auto) 4+ Test 03/02/17 06:08 White Blood Count 3.74 K/uL Red Blood Count 3.98 M/uL Hemoglobin 12.8 g/dL Hematocrit 38.9 % Mean Corpuscular Volume 97.7 fL Mean Corpuscular Hemoglobin 32.2 pg Mean Corpuscular Hemoglobin Concent 32.9 g/dl Platelet Count 283 K/uL Mean Platelet Volume 9.5 fL Neutrophils (%) (Auto) 77.2 % Lymphocytes (%) (Auto) 20.3 % Monocytes (%) (Auto) 1.9 % Eosinophils (%) (Auto) 0.0 % Basophils (%) (Auto) 0.3 % Neutrophils # (Auto) 2.89 K/uL Lymphocytes # (Auto) 0.76 K/uL Monocytes # (Auto) 0.07 K/uL Eosinophils # (Auto) 0.00 K/uL Basophils # (Auto) 0.01 K/uL RDW Standard Deviation 47.9 fL RDW Coefficient of Variation 13.3 % Immature Granulocyte % (Auto) 0.3 % Immature Granulocyte # (Auto) 0.01 K/uL Sodium Level 141 mmol/L Potassium Level 3.9 mmol/L Chloride Level 104 mmol/L Carbon Dioxide Level 26 mmol/L Anion Gap 11.0 mmol/L Blood Urea Nitrogen 21 mg/dl Creatinine 0.87 mg/dl Est Creatinine Clear Calc Drug Dose 46.3 ml/min Estimated GFR () 70.4 Estimated GFR (Non- 60.7 BUN/Creatinine Ratio 24.1 Random Glucose 150 mg/dl Calcium Level 8.9 mg/dl Troponin I < 0.015 ng/ml Assessment and Plan Pt is a 86 yo female with acute on chronic respiratory failure acute respiratory failure, solumedrol 40 mg IV BID and duonebs q 4 hrs and q 2 PRN. pneumonia concerns for gram negatives levaquin 750 mg IV q daily as well. Obtain sputum cx if possible and give mucinex to thin out secretions abnormal ua, no urinary symptoms, is typically incontinent follow for clinical significance HTN, good control cardizem and losartan Dyslipidemia cont statin OA, DC oral prednisone since pt will be on solumedrol GERD stable, cont zantac DVT ppx with heparin Pt is DNR
[2017-03-02] MEDS: METHYLPREDNISOLONE IV 40 MG in SYRINGE 0 ML IV SCH (17:43)
[2017-03-02] MEDS: PRAVASTATIN SOD 10 MG TAB PO SCH (20:43)
[2017-03-03] VITALS (11 sets, daily range): BP systolic 116–162; BP diastolic 72–83; PULSE 69–98; TEMP 36.4–37.1; O2SAT 90–95
[2017-03-03] MEDS: METHYLPREDNISOLONE IV 40 MG in SYRINGE 0 ML IV SCH (05:32)
[2017-03-03] MEDS: HEPARIN SOD 5000 UNIT/0.5 ML CARP SQ SCH ×3 (05:35→20:46)
[2017-03-03] MEDS: ALBUT/IPRATROP 3MG/0.5MG NEB 3 ML VIAL INH SCH ×4 (07:44→18:59)
[2017-03-03] MEDS: FLUTICASONE/SALMETEROL 250/50 (ADVAIR) 14 PUFF/1 INHALER INH SCH ×2 (08:02→20:44)
[2017-03-03] MEDS: TIOTROPIUM BROMIDE 5 PUFF/90 MCG INH INH SCH (08:02)
[2017-03-03] MEDS: GUAIFENESIN 600 MG TABCR PO SCH ×2 (08:04→20:44)
[2017-03-03] MEDS: ASPIRIN 81 MG ECTAB PO SCH (08:04)
[2017-03-03] MEDS: LOSARTAN POTASSIUM 25 MG TAB PO SCH (08:04)
[2017-03-03] MEDS: DILTIAZEM HCL 120 MG EXT REL CAP PO SCH (08:05)
[2017-03-03] MEDS: MULTIVITAMIN TAB PO SCH (08:05)
[2017-03-03] MEDS: ASCORBIC ACID 500 MG TAB PO SCH (08:05)
--- NOTE | 2017-03-03 08:21 | Medical Student: [facility] ---
Med Student Progress Note Date of Service Mar 03, 2017. Subjective Pt evaluation today including: conversation w/ patient Pain: Some back pain that the patient attributes to the bed. PO Intake: Decreased appetite but she is eating. Voiding: incontinence (Urinary) No acute events overnight. Patient reported better quality of sleep last night. Experiencing some anxiety about the eventual transition back home and possible need for oxygen therapy at home. We discussed this at some length and she felt better about the prospect of oxygen therapy after learning more about what was involved. Pulse ox dropped to 84% off oxygen while talking this morning and resting in the hospital bed. Returned to 91% on 2L of oxygen via nasal canula. The patient reported some back pain that she attributes to the hospital bed. Was more comfortable after repositioning. Review of Systems Constitutional: + weakness, + fatigue, No fever, No chills, No sweats Eyes: No worsening of vision, No diplopia ENT: + dental problems, No sore throat Respiratory: + cough, + shortness of breath, + dyspnea on exertion, No sputum Cardiac: No chest pain, No edema Abdomen: No pain, No nausea, No vomiting, No diarrhea, No constipation Musculoskeletal: + joint pain Female : + incontinence Psychiatric: + anxiety (Mild anxiety about eventual transition to home), No depression symptoms, No anhedonism Skin: + problem reported (Bruising over dorsal aspect of hands from blood draws ) Objective Vital Signs Date Time Temp Pulse Resp B/P (MAP) Pulse Ox O2 Delivery O2 Flow Rate FiO2 03/03/17 07:44 69 20 90 Nasal Cannula 2.0 03/03/17 07:21 37.1 96 20 154/83 (106) 90 03/03/17 04:00 91 Nasal Cannula 2.0 03/03/17 04:00 36.4 85 18 158/81 (106) 94 Nasal Cannula 3.0 03/03/17 00:00 91 Nasal Cannula 2.0 03/02/17 23:33 36.5 88 18 154/77 (102) 91 Nasal Cannula 2.0 03/02/17 20:00 Nasal Cannula 2.0 03/02/17 19:26 98 20 95 Nasal Cannula 2.0 03/02/17 16:00 Nasal Cannula 2.0 03/02/17 15:33 36.6 93 18 153/83 (106) 93 Nasal Cannula 2.0 03/02/17 15:27 92 18 94 Nasal Cannula 2.0 03/02/17 12:00 Nasal Cannula 2.0 03/02/17 11:47 36.5 107 18 166/75 (105) 93 2.0 03/02/17 11:10 106 18 95 Nasal Cannula 2.0 03/02/17 08:15 91 Nasal Cannula 2.0 Physical Exam General Appearance: WD/WN, no apparent distress Eyes: bilateral eyes normal inspection, bilateral eyes PERRL, bilateral eyes EOMI ENT: pharynx normal Neck: supple, no adenopathy, no JVD, no carotid bruits Respiratory/Chest: chest non-tender, lungs clear, normal breath sounds, + decreased breath sounds (Decreased breath sounds bilaterally.) Cardiovascular: regular rate, rhythm (Heart sounds are distant on exam), no edema, no gallop, no JVD, no murmur Abdomen: non tender, soft, no organomegaly Extremities: normal inspection Neurologic/Psychiatric: no motor/sensory deficits, alert, normal mood/affect, oriented x 3 Skin: normal color, warm/dry, no rash Lymphatic: no adenopathy Laboratory Results Last 24 Hours Test 03/02/17 14:10 03/03/17 04:44 Troponin I 0.016 ng/ml Assessment and Plan Assessment and Plan: Overall, the patient seems to be improved slightly. She is still requiring oxygen therapy to maintain adequate oxygen saturations this morning. She has not experienced fever or increased white count to make infection more likely. This is likely a COPD flare-up. It is possible with her sister's history of pulmonary fibrosis that the patient may be experiencing the start of some fibrosis herself. Chest CT would be necessary to evaluate this, however it is unlikely to change our management at this time. Respiratory failure- Discontinue salumedrol. Switch to prednisone 20mg PO. Continue dounebs q 4 hours and q 2 prn Concerns for pneumonia- Continue levofloxacin 750 mg IV daily and Mucinex to help clear/thin out some secretions. HTN- Currently have good control with diltiazem and losartan, continue to monitor. Dyslipidemia- Continue pravastatin UA- Abnormal UA but patient is asymptomatic. Will not specifically treat at this time, however Levofloxacin that is being given for possible PNA is appropriate to cover possible UTI organisms as well. Back pain- Patient does not seem to notice when she slides down in bed. She is more comfortable when she is sitting upright. Reposition as needed. DVT prophylaxis- Continue subcutaneous heparin Patient is a DNR Reviewed: Pt Seen/Exam by Me History See my note for details. Assessment/Plan 86 y/o F with acute on chronic respiratory failure acute respiratory failure: likely COPD exacerbation in the setting of PNA: solumedrol 40 mg IV BID -> prednisone 20mg BID (03/03) duonebs q 4 hrs and q 2 PRN. Add mucomyst to inhaler for congestion pneumonia: continue levaquin Obtain sputum cx if possible and give mucinex to thin out secretions abnormal ua: no urinary symptoms Levaquin will cover as well, cx pending HTN: stable cardizem and losartan Dyslipidemia: cont statin OA: hx of oral prednisone use at baseline GERD stable, cont zantac DVT ppx with heparin Pt is DNR PT/OT pending
--- NOTE | 2017-03-03 08:53 | Clinical Documentation Query ---
CLINICAL DOCUMENTATION QUERY Dr. PAUL, 86 yo female presented with worsening shortness of breath x 1 week. O2 sat 77% on RA, tachypneic (respiratory rate 24), described as dyspneic appearing in ER PE. Documentation of acute on chronic respiratory failure does not appear in the clinical documentation until the send day of hospitalization. Please document the POA status of acute on chronic respiratory failure. ( ) Acute on chronic respiratory failure, POA ( ) Acute on chronic respiratory failure, not POA Acute respiratory failure. Pt has no prior hx of respiratory failure or home O2 use Thank You, Denisha Gallegos, BASIA [phone]
[2017-03-03 08:56] LABS: COMPLETE YES; HEMATOCRIT 40.2 % (37-47); IG% 0.2 %; LYMPH % 8.2 %; LYMPH ABS # 0.71 K/uL (1.2-3.4); MEAN CELL VOLUME 98.5 fL (80-100); MEAN CORPUSCULAR HEMOGLOBIN 32.1 pg (25-34); MEAN CORPUSCULAR HGB CONC 32.6 g/dl (32-36); MEAN PLATELET VOLUME 9.5 fL (7.4-10.4); MONO % 6.5 %; NEUT % 85.1 %; PLATELET COUNT 336 K/uL (130-400); RED BLOOD COUNT 4.08 M/uL (4.2-5.4); WHITE BLOOD COUNT 8.65 K/uL (4.8-10.8)
[2017-03-03 09:22] LABS: BUN/CREATININE RATIO 34.2 (10-20); CREATININE 0.99 mg/dl (0.60-1.20); POTASSIUM 3.7 mmol/L (3.5-5.1)
[2017-03-03 09:23] LABS: CALCIUM 9.4 mg/dl (8.5-10.1)
--- NOTE | 2017-03-03 15:45 | Progress Note ---
Subjective Date of Service: Mar 03, 2017. Subjective Pt evaluation today including: conversation w/ patient Pt is feeling much improved. Still a bit SOB with ambulation to the bathroom, but overall better. No chest pain. Eating without issue. She does feel a bit jittery and shaky at times. Pt denies fever, chest pain, abd pain, n/v/c/d, LE pain or swelling. She feels like she is coughing, but unable to produce any sputum. ROS as noted above, otherwise neg. Problem List Medical Problems: (1) COPD (chronic obstructive pulmonary disease) Status: Chronic (2) Hypoxia Status: Acute (3) Pneumonia Status: Acute Objective Vital Signs Date Time Temp Pulse Resp B/P (MAP) Pulse Ox O2 Delivery O2 Flow Rate FiO2 03/03/17 14:47 36.5 89 20 122/75 (91) 93 03/03/17 12:00 Nasal Cannula 1.0 03/03/17 11:22 98 20 91 Nasal Cannula 1.0 03/03/17 11:18 37.1 97 20 162/83 (109) 90 03/03/17 08:00 Nasal Cannula 2.0 03/03/17 07:44 69 20 90 Nasal Cannula 2.0 03/03/17 07:21 37.1 96 20 154/83 (106) 90 03/03/17 04:00 91 Nasal Cannula 2.0 03/03/17 04:00 36.4 85 18 158/81 (106) 94 Nasal Cannula 3.0 03/03/17 00:00 91 Nasal Cannula 2.0 03/02/17 23:33 36.5 88 18 154/77 (102) 91 Nasal Cannula 2.0 03/02/17 20:00 Nasal Cannula 2.0 03/02/17 19:26 98 20 95 Nasal Cannula 2.0 03/02/17 16:00 Nasal Cannula 2.0 Physical Exam General Appearance: WD/WN, no apparent distress Respiratory/Chest: no respiratory distress, + decreased breath sounds, + wheezing (upper airway expiratory) Cardiovascular: regular rate, rhythm, no edema Abdomen: non tender, soft Extremities: non-tender, no pedal edema Neurologic/Psychiatric: alert, oriented x 3 Skin: normal color, warm/dry Laboratory Results Last 24 Hours Test 03/03/17 08:40 White Blood Count 8.65 K/uL Red Blood Count 4.08 M/uL Hemoglobin 13.1 g/dL Hematocrit 40.2 % Mean Corpuscular Volume 98.5 fL Mean Corpuscular Hemoglobin 32.1 pg Mean Corpuscular Hemoglobin Concent 32.6 g/dl Platelet Count 336 K/uL Mean Platelet Volume 9.5 fL Neutrophils (%) (Auto) 85.1 % Lymphocytes (%) (Auto) 8.2 % Monocytes (%) (Auto) 6.5 % Eosinophils (%) (Auto) 0.0 % Basophils (%) (Auto) 0.0 % Neutrophils # (Auto) 7.36 K/uL Lymphocytes # (Auto) 0.71 K/uL Monocytes # (Auto) 0.56 K/uL Eosinophils # (Auto) 0.00 K/uL Basophils # (Auto) 0.00 K/uL RDW Standard Deviation 48.2 fL RDW Coefficient of Variation 13.5 % Immature Granulocyte % (Auto) 0.2 % Immature Granulocyte # (Auto) 0.02 K/uL Sodium Level 140 mmol/L Potassium Level 3.7 mmol/L Chloride Level 104 mmol/L Carbon Dioxide Level 24 mmol/L Anion Gap 12.0 mmol/L Blood Urea Nitrogen 34 mg/dl Creatinine 0.99 mg/dl Est Creatinine Clear Calc Drug Dose 40.6 ml/min Estimated GFR () 60.2 Estimated GFR (Non- 52.0 BUN/Creatinine Ratio 34.2 Random Glucose 156 mg/dl Calcium Level 9.4 mg/dl Assessment and Plan 86 y/o F with acute on chronic respiratory failure acute respiratory failure: likely COPD exacerbation in the setting of PNA: solumedrol 40 mg IV BID -> prednisone 20mg BID (03/03) duonebs q 4 hrs and q 2 PRN. Add mucomyst to inhaler for congestion pneumonia: continue levaquin Obtain sputum cx if possible and give mucinex to thin out secretions abnormal ua: no urinary symptoms Levaquin will cover as well, cx pending HTN: stable cardizem and losartan Dyslipidemia: cont statin OA: hx of oral prednisone use at baseline GERD stable, cont zantac DVT ppx with heparin Pt is DNR PT/OT pending
[2017-03-03] MEDS ORDERED: LEVOFLOXACIN / D5W 750 MG in PREMIXED IN D5W 150 ML IV SCH (18:00)
[2017-03-03] MEDS: ACETYLCYSTEINE 20% INHAL SOLN ***DISPENSED BY RESP. INH SCH (18:59)
[2017-03-03] MEDS: PRAVASTATIN SOD 10 MG TAB PO SCH (20:44)
[2017-03-04] VITALS (11 sets, daily range): BP systolic 134–174; BP diastolic 64–91; PULSE 82–108; TEMP 36.6–36.9; O2SAT 90–96
[2017-03-04] MEDS: HEPARIN SOD 5000 UNIT/0.5 ML CARP SQ SCH ×3 (05:22→20:47)
[2017-03-04 05:47] LABS: BASO % 0.1 %; BASO ABS # 0.01 K/uL (0-0.2); COMPLETE YES; HEMATOCRIT 39.2 % (37-47); IG% 0.6 %; LYMPH % 8.2 %; LYMPH ABS # 0.84 K/uL (1.2-3.4); MEAN CELL VOLUME 98.7 fL (80-100); MEAN CORPUSCULAR HGB CONC 32.4 g/dl (32-36); MEAN PLATELET VOLUME 9.7 fL (7.4-10.4); MONO % 6.4 %; NEUT % 84.7 %; PLATELET COUNT 311 K/uL (130-400); RED BLOOD COUNT 3.97 M/uL (4.2-5.4)
[2017-03-04 06:17] LABS: BUN/CREATININE RATIO 41.1 (10-20); CALCIUM 8.8 mg/dl (8.5-10.1); CREATININE 1.1 mg/dl (0.60-1.20)
[2017-03-04] MEDS: ACETYLCYSTEINE 20% INHAL SOLN ***DISPENSED BY RESP. INH SCH ×2 (07:27→19:19)
[2017-03-04] MEDS: ALBUT/IPRATROP 3MG/0.5MG NEB 3 ML VIAL INH SCH ×4 (07:27→19:19)
[2017-03-04] MEDS: TIOTROPIUM BROMIDE 5 PUFF/90 MCG INH INH SCH (07:35)
[2017-03-04] MEDS: FLUTICASONE/SALMETEROL 250/50 (ADVAIR) 14 PUFF/1 INHALER INH SCH ×2 (07:35→20:44)
[2017-03-04] MEDS: ASPIRIN 81 MG ECTAB PO SCH (07:36)
[2017-03-04] MEDS: GUAIFENESIN 600 MG TABCR PO SCH ×2 (07:36→20:45)
[2017-03-04] MEDS: LOSARTAN POTASSIUM 25 MG TAB PO SCH (07:36)
[2017-03-04] MEDS: DILTIAZEM HCL 120 MG EXT REL CAP PO SCH (07:36)
[2017-03-04] MEDS: MULTIVITAMIN TAB PO SCH (07:37)
[2017-03-04] MEDS: ASCORBIC ACID 500 MG TAB PO SCH (07:37)
--- NOTE | 2017-03-04 14:13 | Medical Student: [facility] ---
Med Student Progress Note Date of Service Mar 04, 2017. Subjective Pt evaluation today including: conversation w/ patient Patient is feeling better. No acute events overnight. She was at 94% on 2L when I visited her this morning. Oxygen saturation dropped to 90% after discontinuing oxygen for 20 minutes. Her symptoms are improved and she appears to be moving more air. Repots that she was able to cough up some "phlegm" after her breathing treatments this morning. Her only concerns are transitioning back to home with oxygen therapy. Review of Systems Constitutional: + fatigue, No fever, No chills, No sweats Eyes: No diplopia Respiratory: + cough, + sputum Cardiac: No chest pain, No edema Abdomen: No pain, No nausea, No vomiting, No diarrhea, No constipation Female : + incontinence Neurologic: No weakness Objective Vital Signs Date Time Temp Pulse Resp B/P (MAP) Pulse Ox O2 Delivery O2 Flow Rate FiO2 03/04/17 12:00 Nasal Cannula 1.0 03/04/17 11:33 36.6 89 16 134/64 (87) 91 Nasal Cannula 1.0 03/04/17 11:30 86 16 91 Nasal Cannula 1.0 03/04/17 08:00 Nasal Cannula 1.0 03/04/17 07:32 36.6 93 16 174/91 (118) 95 Nasal Cannula 2.0 03/04/17 07:28 82 16 96 Nasal Cannula 2.0 03/04/17 04:00 36.6 87 20 156/77 (103) 91 Nasal Cannula 2.0 03/04/17 04:00 91 Nasal Cannula 2.0 03/04/17 00:00 91 Nasal Cannula 2.0 03/03/17 23:38 36.9 95 20 146/73 (97) 91 Nasal Cannula 1.0 03/03/17 20:00 Nasal Cannula 1.0 03/03/17 19:32 36.8 98 16 116/72 (87) 91 Room Air 03/03/17 18:59 90 16 92 Room Air 03/03/17 16:00 Room Air 03/03/17 15:56 83 18 95 Nasal Cannula 1.0 03/03/17 14:47 36.5 89 20 122/75 (91) 93 Physical Exam General Appearance: WD/WN, no apparent distress ENT: hearing grossly normal, pharynx normal Neck: supple Respiratory/Chest: chest non-tender, lungs clear, no respiratory distress, no accessory muscle use, + decreased breath sounds Cardiovascular: regular rate, rhythm, no edema, no gallop, no JVD, no murmur Abdomen: non tender, soft Neurologic/Psychiatric: alert, normal mood/affect, oriented x 3 Skin: normal color, warm/dry, no rash Laboratory Results Last 24 Hours Test 03/04/17 05:11 White Blood Count 10.20 K/uL Red Blood Count 3.97 M/uL Hemoglobin 12.7 g/dL Hematocrit 39.2 % Mean Corpuscular Volume 98.7 fL Mean Corpuscular Hemoglobin 32.0 pg Mean Corpuscular Hemoglobin Concent 32.4 g/dl Platelet Count 311 K/uL Mean Platelet Volume 9.7 fL Neutrophils (%) (Auto) 84.7 % Lymphocytes (%) (Auto) 8.2 % Monocytes (%) (Auto) 6.4 % Eosinophils (%) (Auto) 0.0 % Basophils (%) (Auto) 0.1 % Neutrophils # (Auto) 8.64 K/uL Lymphocytes # (Auto) 0.84 K/uL Monocytes # (Auto) 0.65 K/uL Eosinophils # (Auto) 0.00 K/uL Basophils # (Auto) 0.01 K/uL RDW Standard Deviation 49.1 fL RDW Coefficient of Variation 13.5 % Immature Granulocyte % (Auto) 0.6 % Immature Granulocyte # (Auto) 0.06 K/uL Sodium Level 142 mmol/L Potassium Level 4.0 mmol/L Chloride Level 106 mmol/L Carbon Dioxide Level 29 mmol/L Anion Gap 7.0 mmol/L Blood Urea Nitrogen 45 mg/dl Creatinine 1.10 mg/dl Est Creatinine Clear Calc Drug Dose 36.5 ml/min Estimated GFR () 53.0 Estimated GFR (Non- 45.7 BUN/Creatinine Ratio 41.1 Random Glucose 150 mg/dl Calcium Level 8.8 mg/dl Assessment and Plan Assessment and Plan: In summary, the patient is a 86 year old woman who is admitted to the hospital for a COPD exacerbation. At this time, her symptoms are greatly improved. Her oxygen saturations have increased throughout her stay. She states that she is ready to go home. COPD- Continue advair, spiriva, and prednisone 20mg BID PO. We will need to have respiratory therapy test her for oxygen desaturations before discharge. She may require oxygen therapy at home. HTN- stable. Continue cardizem and losartan. Dyslipidemia- Continue statin Discontinue heparin for DVT prophylaxis Patient is a DNR Discharge to home pending respiratory therapy input on oxygen therapy. Reviewed: Pt Seen/Exam by Me History See my note for details. Assessment/Plan 86 y/o F with acute on chronic respiratory failure acute respiratory failure: likely COPD exacerbation in the setting of PNA: solumedrol 40 mg IV BID -> prednisone 20mg BID (03/03) duonebs q 4 hrs and q 2 PRN. mucomyst to inhaler for congestion pneumonia: continue levaquin Obtain sputum cx if possible and mucinex to thin out secretions abnormal ua: no urinary symptoms Levaquin will cover as well HTN: stable cardizem and losartan Dyslipidemia: cont statin OA: hx of oral prednisone use at baseline GERD stable, cont zantac DVT ppx with heparin Pt is DNR PT/OT recs for
[2017-03-04] MEDS: ACETAMINOPHEN 325 MG TAB PO PRN ×2 (14:53→22:14)
--- NOTE | 2017-03-04 18:08 | Progress Note ---
Subjective Date of Service: Mar 04, 2017. Subjective Pt evaluation today including: conversation w/ patient Pt is continuing to feel improved. Still requiring O2 at rest, which is new for her. Feels that mucinex helped congestion, brought up a lot of mucus s/p tx. Eating without issue. Pt denies fever, chest pain, abd pain, n/v/c/d, LE pain or swelling. ROS as noted above, otherwise neg. Problem List Medical Problems: (1) COPD (chronic obstructive pulmonary disease) Status: Chronic (2) Hypoxia Status: Acute (3) Pneumonia Status: Acute Objective Vital Signs Date Time Temp Pulse Resp B/P (MAP) Pulse Ox O2 Delivery O2 Flow Rate FiO2 03/04/17 16:00 Nasal Cannula 1.0 03/04/17 15:47 36.7 97 18 137/72 (93) 93 Nasal Cannula 1.0 03/04/17 15:36 89 16 93 Nasal Cannula 1.0 03/04/17 12:00 Nasal Cannula 1.0 03/04/17 11:33 36.6 89 16 134/64 (87) 91 Nasal Cannula 1.0 03/04/17 11:30 86 16 91 Nasal Cannula 1.0 03/04/17 08:00 Nasal Cannula 1.0 03/04/17 07:32 36.6 93 16 174/91 (118) 95 Nasal Cannula 2.0 03/04/17 07:28 82 16 96 Nasal Cannula 2.0 03/04/17 04:00 36.6 87 20 156/77 (103) 91 Nasal Cannula 2.0 03/04/17 04:00 91 Nasal Cannula 2.0 03/04/17 00:00 91 Nasal Cannula 2.0 03/03/17 23:38 36.9 95 20 146/73 (97) 91 Nasal Cannula 1.0 03/03/17 20:00 Nasal Cannula 1.0 03/03/17 19:32 36.8 98 16 116/72 (87) 91 Room Air 03/03/17 18:59 90 16 92 Room Air Physical Exam Comments: General Appearance: WD/WN, no apparent distress Respiratory/Chest: no respiratory distress, + decreased breath sounds, + wheezing (upper airway expiratory is resolved) Cardiovascular: regular rate, rhythm, no edema Abdomen: non tender, soft Extremities: non-tender, no pedal edema Neurologic/Psychiatric: alert, oriented x 3 Skin: normal color, warm/dry Laboratory Results Last 24 Hours Test 03/04/17 05:11 White Blood Count 10.20 K/uL Red Blood Count 3.97 M/uL Hemoglobin 12.7 g/dL Hematocrit 39.2 % Mean Corpuscular Volume 98.7 fL Mean Corpuscular Hemoglobin 32.0 pg Mean Corpuscular Hemoglobin Concent 32.4 g/dl Platelet Count 311 K/uL Mean Platelet Volume 9.7 fL Neutrophils (%) (Auto) 84.7 % Lymphocytes (%) (Auto) 8.2 % Monocytes (%) (Auto) 6.4 % Eosinophils (%) (Auto) 0.0 % Basophils (%) (Auto) 0.1 % Neutrophils # (Auto) 8.64 K/uL Lymphocytes # (Auto) 0.84 K/uL Monocytes # (Auto) 0.65 K/uL Eosinophils # (Auto) 0.00 K/uL Basophils # (Auto) 0.01 K/uL RDW Standard Deviation 49.1 fL RDW Coefficient of Variation 13.5 % Immature Granulocyte % (Auto) 0.6 % Immature Granulocyte # (Auto) 0.06 K/uL Sodium Level 142 mmol/L Potassium Level 4.0 mmol/L Chloride Level 106 mmol/L Carbon Dioxide Level 29 mmol/L Anion Gap 7.0 mmol/L Blood Urea Nitrogen 45 mg/dl Creatinine 1.10 mg/dl Est Creatinine Clear Calc Drug Dose 36.5 ml/min Estimated GFR () 53.0 Estimated GFR (Non- 45.7 BUN/Creatinine Ratio 41.1 Random Glucose 150 mg/dl Calcium Level 8.8 mg/dl Assessment and Plan 86 y/o F with acute on chronic respiratory failure acute respiratory failure: likely COPD exacerbation in the setting of PNA: solumedrol 40 mg IV BID -> prednisone 20mg BID (03/03) duonebs q 4 hrs and q 2 PRN. mucomyst to inhaler for congestion pneumonia: continue levaquin Obtain sputum cx if possible and mucinex to thin out secretions abnormal ua: no urinary symptoms Levaquin will cover as well HTN: stable cardizem and losartan Dyslipidemia: cont statin OA: hx of oral prednisone use at baseline GERD stable, cont zantac DVT ppx with heparin Pt is DNR PT/OT recs for HH
[2017-03-04] MEDS: PRAVASTATIN SOD 10 MG TAB PO SCH (20:45)
[2017-03-05] VITALS (8 sets, daily range): BP systolic 140–153; BP diastolic 74–78; PULSE 82–97; TEMP 36.6; O2SAT 91–94
[2017-03-05] MEDS: HEPARIN SOD 5000 UNIT/0.5 ML CARP SQ SCH (06:00)
[2017-03-05 06:45] LABS: BASO % 0.1 %; BASO ABS # 0.01 K/uL (0-0.2); COMPLETE YES; HEMATOCRIT 38.7 % (37-47); IG% 1.1 %; LYMPH % 12.1 %; LYMPH ABS # 1.19 K/uL (1.2-3.4); MEAN CELL VOLUME 99.2 fL (80-100); MEAN CORPUSCULAR HEMOGLOBIN 31.8 pg (25-34); MEAN PLATELET VOLUME 9.8 fL (7.4-10.4); MONO % 7.7 %; PLATELET COUNT 297 K/uL (130-400); WHITE BLOOD COUNT 9.86 K/uL (4.8-10.8)
[2017-03-05] MEDS: ACETYLCYSTEINE 20% INHAL SOLN ***DISPENSED BY RESP. INH SCH (07:13)
[2017-03-05] MEDS: ALBUT/IPRATROP 3MG/0.5MG NEB 3 ML VIAL INH SCH ×2 (07:13→11:36)
[2017-03-05 07:21] LABS: BUN/CREATININE RATIO 42.7 (10-20); CALCIUM 8.6 mg/dl (8.5-10.1); CREATININE 1.1 mg/dl (0.60-1.20); POTASSIUM 4.3 mmol/L (3.5-5.1)
[2017-03-05] MEDS: TIOTROPIUM BROMIDE 5 PUFF/90 MCG INH INH SCH (07:52)
[2017-03-05] MEDS: GUAIFENESIN 600 MG TABCR PO SCH (07:53)
[2017-03-05] MEDS: DILTIAZEM HCL 120 MG EXT REL CAP PO SCH (07:53)
[2017-03-05] MEDS: ASPIRIN 81 MG ECTAB PO SCH (07:53)
[2017-03-05] MEDS: MULTIVITAMIN TAB PO SCH (07:53)
[2017-03-05] MEDS: FLUTICASONE/SALMETEROL 250/50 (ADVAIR) 14 PUFF/1 INHALER INH SCH (07:53)
[2017-03-05] MEDS: ASCORBIC ACID 500 MG TAB PO SCH (07:54)
[2017-03-05] MEDS: LOSARTAN POTASSIUM 25 MG TAB PO SCH (07:54)
[2017-03-05] MEDS ORDERED: PRED10TA PO (12:00)
[2017-03-05] MEDS ORDERED: LVQ750 PO (12:00)
[2017-03-05] MEDS ORDERED: VNTHFA/IN INH (12:00)
--- NOTE | 2017-03-05 12:03 | Discharge Instructions ---
Discharge Instructions Date of Service Mar 05, 2017. Admission Reason for Admission: COPD Discharge Discharge Diagnosis / Problem: COPD exacerbation Discharge Goals Goal(s): Decrease discomfort, Improve function, Increase independence Activity Recommendations Activity Limitations: resume your previous activity . Instructions / Follow-Up Instructions / Follow-Up You should use the albuterol inhaler every 6-8 hours while you are awake, even if you are not short of breath until you see Dr. Fajardo or another provider in his office. After they listen to your lungs, you should ask if you need to continue this inhaler with regular use or if you can use it only if you are short of breath. Current Hospital Diet Patient's current hospital diet: Low Sodium Diet (2gm Na) Discharge Diet Recommended Diet: AHA Diet (Heart Healthy) Pending Studies Studies pending at discharge: no Laboratory Results Hemoglobin A1c Test 01/15/17 10:43 Range/Units Estimated Average Glucose 111 mg/dl Hemoglobin A1c 5.5 4.5-5.6 % Medical Emergencies . Who to Call and When: Medical Emergencies: If at any time you feel your situation is an emergency, please call 911 immediately. . Non-Emergent Contact Non-Emergency issues call your: Primary Care Provider . . "Provider Documentation" section prepared by Chelsie Mclean. . VTE Core Measure Inpt VTE Proph given/why not?: Unfractionated heparin SQ
--- NOTE | 2017-03-05 12:07 | Discharge Summary ---
Discharge Summary Date of Service Mar 05, 2017. Discharge Summary Admission Date: Mar 01, 2017 at 19:04 Discharge Date: Mar 05, 2017 Discharge Disposition: Home with services Principal Diagnosis: COPD exacerbation Problems/Secondary Diagnoses: (1) COPD (chronic obstructive pulmonary disease) Status: Chronic HTN OA Hyperlipidemia Procedures: 2 step Medication Reconciliation New Medications: Albuterol Hfa (Ventolin Hfa) 200 Puffs/64038 Mcg Aers 2-4 PUFFS INH Q6H, #1 INHALER Prednisone Tab (Prednisone) 10 Mg Tab 10 MG PO DAILY for 10 Days, #10 TAB 2 tab daily x3days,->1 tab daily x3days,->1/2 tab daily x4days.Then return to 2mg daily until follow up with Dr Hutchins Levofloxacin (Levofloxacin) 750 Mg Tab 750 MG PO Q48H for 6 Days, #6 TAB Continued Medications: Acetaminophen (Tylenol Arthritis Ext Rel) 650 Mg Cplt 650 MG PO QID PRN for Pain Ascorbic Acid (Vitamin C) 500 Mg Tab 500 MG PO DAILY Aspirin (Aspirin Ec) 81 Mg Tab 81 MG PO DAILY Biotin (Biotin) 1,000 Mcg Tab 1000 MCG PO DAILY Calcium (Calcium) 600 Mg Tab 600 MG PO DAILY Cholecalciferol (Vitamin D3) 5,000 Unit Tab 5000 UNITS PO DAILY Diltiazem Hcl Ext Rel (Tiazac) 240 Mg Capcr 240 MG PO DAILY Eyelid Cleansers (Sterilid) 1 Aer Aer 1 INCH TOP DAILY PRN for UNDECIDED Fluticasone Prop/Salmeterol (Advair Diskus 250/50 60 Dose) 1 Ea Aerp 1 PUFF INH BID Losartan Potassium (Cozaar) 25 Mg Tab 25 MG PO DAILY Multiple Vitamin (Multivitamin) 1 Tab Tab 1 TAB PO DAILY Polyethylene Glycol-Propylene (Systane Ultra) 1 Mary Ellen Mary Ellen 1 DROPS OP DIRECTED Pravastatin Sod (Pravastatin Sodium) 10 Mg Tab 10 MG PO QPM Prednisone (Prednisone) 1 Mg Tab 2 MG PO DAILY Ranitidine Hcl (Zantac) 150 Mg Tab 150 MG PO UD PRN for HEARTBURN Tiotropium [place] (Spiriva Handihaler) 30 Puff/540 Mcg Aerp 1 CAP INH DAILY Discharge Exam Pt is doing well today. SOB with ambulation without O2, but not at rest. Does not feel she has any further chest congestion, no longer bringing up mucous. Tolerating diet without issue. Pt denies fever, SOB, chest pain, abd pain, n/v/ c/d, LE pain or swelling. ROS as noted above, otherwise neg. Physical Exam: General Appearance: WD/WN, no apparent distress Respiratory/Chest: normal breath sounds, no respiratory distress Cardiovascular: regular rate, rhythm, no edema Abdomen / GI: non tender, soft Extremities: no calf tenderness, no pedal edema Neurologic/Psychiatric: alert, normal mood/affect, oriented x 3 Skin: normal color, warm/dry Hospital Course 86 y/o F with acute on chronic respiratory failure acute respiratory failure: likely COPD exacerbation in the setting of PNA: will finish course of levaquin and steroid taper as outpt Albuterol Q6-8hs until f/u mucomyst to inhaler for congestion during admission but has resolved. Will not continue as outpt pneumonia: continue levaquin Obtain sputum cx if possible and mucinex to thin out secretions abnormal ua: no urinary symptoms Levaquin will cover as well HTN: stable cardizem and losartan Dyslipidemia: cont statin OA: hx of oral prednisone use at baseline Once pt has finished taper for pulm source, she is to continue with her 2mg as per rheum until that f/u later this month GERD stable, cont zantac Pt is DNR/DNI PT/OT recs for HH Total Time Spent: Greater than 30 minutes This includes examination of the patient, discharge planning, medication reconciliation, and communication with other providers. Discharge Instructions Please refer to the electronic Patient Visit Report (Discharge Instructions) for additional information. Follow-Up Dr. Fajardo next week Additional Copies To Fausto Fajardo M.D.
[2017-03-05] MEDS ORDERED: LEVOFLOXACIN 750 MG TAB PO SCH (18:00)
== END 2017-03-05 14:58 | disposition home health service (06) | DRG 189 ==
LOC: EDBD 16:35 → C.EDB 16:36 → C.MED 19:04 → ENRESERV 20:12
PROVIDERS: ADMIT Hospitalist; ATTEND Family Medicine
DX: J96.20 Acute and chronic respiratory failure, unspecified whether with hypoxia or hypercapnia (principal); J15.6 Pneumonia due to other Gram-negative bacteria; J44.1 Chronic obstructive pulmonary disease with (acute) exacerbation; J44.0 Chronic obstructive pulmonary disease with (acute) lower respiratory infection; I10 Essential (primary) hypertension; M19.90 Unspecified osteoarthritis, unspecified site; E78.5 Hyperlipidemia, unspecified; K21.9 Gastro-esophageal reflux disease without esophagitis; Z66 Do not resuscitate; M81.0 Age-related osteoporosis without current pathological fracture; R82.90 Unspecified abnormal findings in urine; Z87.891 Personal history of nicotine dependence; Z79.82 Long term (current) use of aspirin; Z79.899 Other long term (current) drug therapy; Z79.51 Long term (current) use of inhaled steroids; Z79.52 Long term (current) use of systemic steroids

== ENCOUNTER → 2017-04-15 | Outpatient (CLI) | payer OTHER, MEDICARE ==
[~2017-04-15] MED LIST changes: +ACET1TAB84 PO; +ADVIN25/60 INH; -ASCA500; +ASCA500 PO; +ASPI81TA28 PO; +BIOT1TAB5 PO; +CALC600T37 PO; -CALCTAB5; +CHOL1TAB46 PO; -CRDCD240; +DILT-115 PO; -FLVHFA220; -LANS30CA12; +LOSA1TAB PO; +LVQ750 PO; -MULT-506; +MULTTAB58 PO; +POLY1SOL6 OP; +PRD/1 PO; -PRED10TA; +PRVC10 PO; -SALM50AE2; -SERT50TA; -SNG10; +SPRIN/30 INH; -TIOTCAP; +VNTHFA/IN INH; +ZNT/150 PO; +[UNRECOGNIZED DRUG - OTHER] TOP
--- NOTE | 2017-04-15 15:53 | DIAGNOSTIC IMAGING REPORT ---
CHEST 2 VIEWS ROUTINE CLINICAL HISTORY: 86 years-old Female presenting with pneumonia. TECHNIQUE: PA and lateral views of the chest were obtained. COMPARISON: 03/01/2017. FINDINGS: Cardiomediastinal silhouette remarkable for atherosclerosis of the aortic arch. Apparent hazy left basilar opacity may be visible on lateral view in the posterior basal region. Blunting of the bilateral posterior costophrenic angles may indicate trace pleural effusions. Osseous structures and upper abdomen normal. IMPRESSION: 1. Hazy left basilar opacity. Differential considerations include atelectasis, aspiration, or infection. 2. Trace bilateral pleural effusions. Electronically signed by: Adarsh Rogel M.D. 04/15/2017 3:52 PM Dictated Date/Time: 04/15/2017 3:48 PM
== END | disposition home or self-care (01) ==
LOC: C.RAD1850 15:38
PROVIDERS: ATTEND Internal Medicine
DX: J18.9 Pneumonia, unspecified organism (principal)

== ENCOUNTER → 2017-06-12 | Outpatient (CLI) | payer OTHER, MEDICARE ==
[2017-06-12 12:41] LABS: URINE APPEARANCE CLOUDY (CLEAR); URINE BILIRUBIN NEG (NEG); URINE COLOR YELLOW; URINE EPITHELIAL CELL AUTO >30 /lpf (0-5); URINE NITRITE POS (NEG); URINE SPECIFIC GRAVITY 1.021 (1.000-1.030); UROBILINOGEN NEG (NEG)
[2017-06-12 12:47] LABS: MANUAL MICROSCOPIC REQUIRED? NO; REVIEW REQ? NO
== END | disposition home or self-care (01) ==
LOC: C.LABBFT 11:08
PROVIDERS: ATTEND Physician Assistant Medical
DX: N39.0 Urinary tract infection, site not specified (principal)

== ENCOUNTER → 2017-06-16 | Outpatient (CLI) | payer OTHER, MEDICARE ==
[2017-06-16 12:15] LABS: BASO % 0.5 %; BASO ABS # 0.04 K/uL (0-0.2); COMPLETE YES; EOS % 2.8 %; HEMATOCRIT 38.6 % (37-47); IG% 0.4 %; LYMPH % 22.7 %; LYMPH ABS # 1.87 K/uL (1.2-3.4); MEAN CELL VOLUME 98.7 fL (80-100); MEAN CORPUSCULAR HEMOGLOBIN 32.2 pg (25-34); MEAN CORPUSCULAR HGB CONC 32.6 g/dl (32-36); MEAN PLATELET VOLUME 9.6 fL (7.4-10.4); MONO % 7.6 %; PLATELET COUNT 305 K/uL (130-400); RED BLOOD COUNT 3.91 M/uL (4.2-5.4); WHITE BLOOD COUNT 8.24 K/uL (4.8-10.8)
[2017-06-16 13:10] LABS: ALT/SGPT 13 U/L (12-78); BLOOD UREA NITROGEN 25 mg/dl (7-18); BUN/CREATININE RATIO 25.3 (10-20); CALCIUM 9.4 mg/dl (8.5-10.1); CARBON DIOXIDE 24 mmol/L (21-32); CHLORIDE 105 mmol/L (98-107); CHOLESTEROL 151 mg/dl (0-200); GLUCOSE 99 mg/dl (70-99); POTASSIUM 3.8 mmol/L (3.5-5.1); SODIUM 138 mmol/L (136-145)
[2017-06-16 13:13] LABS: ALB/GLOB RATIO 1.2 (0.9-2); ALKALINE PHOSPHATASE 64 U/L (45-117); AST/SGOT 16 U/L (15-37); CHOLESTEROL/HDL RATIO 1.9; HDL CHOLESTEROL 79 mg/dl; LDL CHOLESTEROL CALCULATED 59 mg/dl; TRIGLYCERIDES 63 mg/dl (0-150); VERY LOW DENSITY LIPOPROT CALC 13 mg/dl
== END | disposition home or self-care (01) ==
LOC: C.LAB1850 11:04
PROVIDERS: ATTEND Internal Medicine Rheumatology
DX: Z51.81 Encounter for therapeutic drug level monitoring (principal); M35.3 Polymyalgia rheumatica; Z79.52 Long term (current) use of systemic steroids; I65.29 Occlusion and stenosis of unspecified carotid artery; J45.909 Unspecified asthma, uncomplicated

== ENCOUNTER → 2017-08-05 | Outpatient (CLI) | payer OTHER, MEDICARE | END | disposition home or self-care (01) | LOC: C.LAB1850 11:13 | PROVIDERS: ATTEND Internal Medicine Rheumatology | DX: M15.4 Erosive (osteo)arthritis (principal); M25.561 Pain in right knee ==

== ENCOUNTER → 2018-01-18 | Outpatient (CLI) | payer OTHER, MEDICARE ==
[~2018-01-18] MED LIST changes: -VNTHFA/IN INH
[2018-01-18 12:32] LABS: HEMOGLOBIN A1C 5.5 % (4.5-5.6)
[2018-01-18 17:30] LABS: BLOOD UREA NITROGEN 19 mg/dl (7-18); CALCIUM 9.8 mg/dl (8.5-10.1); CARBON DIOXIDE 25 mmol/L (21-32); CREATININE 0.97 mg/dl (0.60-1.20); GLUCOSE 97 mg/dl (70-99); POTASSIUM 4.2 mmol/L (3.5-5.1); SODIUM 139 mmol/L (136-145)
== END | disposition home or self-care (01) ==
LOC: C.LABBFT 10:33
PROVIDERS: ATTEND Internal Medicine
DX: R73.01 Impaired fasting glucose (principal); R20.0 Anesthesia of skin